=== PATIENT | male | born 1970 | race Caucasian/White ===

== ENCOUNTER 2019-08-17 06:10 | Outpatient (CLI) | payer MEDICAID | END 2019-08-17 06:11 | disposition critical access hospital (66) | LOC: EMS 06:10 | PROVIDERS: ATTEND Surgery | DX: R06.02 Shortness of breath (principal); R05 Cough | CPT/HCPCS: A0425; A0429; A0999 ==

== ENCOUNTER 2019-08-17 06:27 | Observation (INO) | payer MEDICAID ==
--- NOTE | 2019-08-17 07:24 | ED Physician Documentation ---
PD HPI DYSPNEA - Stated complaint Stated Complaint: DIFFICULTY BREATHING - Chief complaint Chief Complaint: Resp - History obtained from History obtained from: Patient - History of Present Illness Timing - onset: How many days ago (3) Timing - onset during: Rest Timing - duration: Days (3) Timing - details: Gradual onset, Still present Inciting event(s): URI Improved by: Rest, Sitting up Worsened by: Exertion, Laying flat, Coughing Associated symptoms: Fever, Cough, Chest pain / discomfort, Other (vomiting skin rash and dyspnea). No: Palpitations, Diaphoresis, Bilateral edema, Unilateral edema Similar symptoms before: Has not had sx before Recently seen: Not recently seen - Additional information Additional information: 49-year-old homeless male presents to the emergency department this morning with 3-day history of cough and increasing exertional dyspnea. He feels that he has a fever and he is body is covered in a rash that has had for about 3 weeks. He states he began to have this while he was in [place]. He has had some vomiting denies any diarrhea but does state that he is dizzy when standing. Review of Systems Constitutional: reports: Fever, Chills, Myalgias, Fatigue Eyes: denies: Decreased vision Ears: denies: Ear pain Nose: reports: Rhinorrhea / runny nose, Congestion Throat: reports: Sore throat Cardiac: reports: Chest pain / pressure. denies: Palpitations, Pedal edema, Calf pain Respiratory: reports: Dyspnea, Cough GI: reports: Nausea, Vomiting. denies: Abdominal Pain, Diarrhea : denies: Dysuria, Frequency Skin: reports: Rash Musculoskeletal: denies: Neck pain, Back pain, Extremity pain Neurologic: denies: Generalized weakness, Focal weakness, Numbness PD PAST MEDICAL HISTORY - Past Medical History Past Medical History: No Other Past Medical History: pt denies any medical hx - Past Surgical History Past Surgical History: No - Present Medications Home Medications: Ambulatory Orders Medication Instructions Recorded Confirmed No Known Home Medications 08/17/19 08/17/19 - Allergies Allergies/Adverse Reactions: Allergies Allergy/AdvReac Type Severity Reaction Status Date / Time No Known Drug Allergies Allergy Verified 08/17/19 07:37 - Social History Does the pt smoke?: Yes Smoking Status: Current every day smoker Does the pt drink ETOH?: Yes Does the pt have substance abuse?: No Substance Use and Type: Marijuana, Meth - Immunizations Immunizations are current?: No - POLST Patient has POLST: No PD ED PE NORMAL - Vitals Vital signs reviewed: Yes (tachy and tachypneic) - General General: Alert and oriented X 3, No acute distress, Well developed/nourished - HEENT HEENT: Atraumatic, PERRL, EOMI, Other (dry mucous membranes ) - Neck Neck: Supple, no meningeal sign, No bony TTP - Cardiac Cardiac: No murmur, Other (tachy to 110) - Respiratory Respiratory: No respiratory distress, Clear bilaterally - Abdomen Abdomen: Soft, Non tender - Back Back: No CVA TTP, No spinal TTP - Derm Derm: Normal color, Warm and dry, Other (There are multiple superficial skin eruptions over the entire body consistent with scabies. ) - Extremities Extremities: No deformity, No edema - Neuro Neuro: Alert and oriented X 3, correctional supervisor lieutenant 2-12 intact, No motor deficit, No sensory deficit, Normal speech Eye Opening: Spontaneous Motor: Obeys Commands Verbal: Oriented GCS Score: 15 - Psych Psych: Normal mood, Normal affect Results - Vitals Vitals: Vital Signs - 24 hr 08/17/19 08/17/19 08/17/19 06:30 07:50 10:22 Temperature 36.7 C 36.8 C 36.2 C L Heart Rate 111 H 89 64 Respiratory 24 20 15 Rate Blood Pressure 105/69 97/62 128/77 O2 Saturation 96 98 100 Oxygen O2 Source Room air - Labs Labs: Laboratory Tests 08/17/19 08/17/19 08/17/19 07:20 07:20 07:20 WBC 9.0 RBC 4.90 Hgb 15.9 Hct 45.3 MCV 92.4 MCH 32.4 H MCHC 35.1 RDW 12.2 Plt Count 133 MPV 9.9 Neut # (Auto) 8.1 H Lymph # (Auto) 0.6 L Bureau # (Auto) 0.3 Eos # (Auto) 0.0 Baso # (Auto) 0.0 Absolute Nucleated RBC 0.00 Nucleated RBC % 0.0 PT 21.2 H INR 1.9 H APTT 33.7 H Sodium 130 L Potassium 3.4 L Chloride 94 L Carbon Dioxide 23 Anion Gap 13.0 BUN 19 Creatinine 1.6 H Estimated GFR (MDRD) 46 L Glucose 125 H Lactic Acid Calcium 8.6 Total Bilirubin 2.3 H AST > 5200 H ALT 4622 H Alkaline Phosphatase 120 Total Creatine Kinase CK-MB (CK-2) Total Protein 6.3 L Albumin 3.2 Globulin 3.1 Albumin/Globulin Ratio 1.0 Lipase 40 Urine Color Urine Clarity Urine pH Ur Specific Mayer Urine Protein Urine Glucose (UA) Urine Ketones Urine Occult Blood Urine Nitrite Urine Bilirubin Urine Urobilinogen Ur Leukocyte Esterase Urine RBC Urine WBC Ur Squamous Epith Cells Urine Bacteria Urine Casts Ur Microscopic Review Urine Culture Comments Salicylates Urine Opiates Screen Ur Oxycodone Screen Urine Methadone Screen Ur Propoxyphene Screen Acetaminophen Ur Barbiturates Screen Ur Tricyclics Screen Ur Phencyclidine Scrn Ur Amphetamine Screen U Methamphetamines Scrn U Benzodiazepines Scrn Urine Cocaine Screen U Cannabinoids Screen Ethyl Alcohol Group A Strep Rapid 08/17/19 08/17/19 08/17/19 07:20 07:20 07:20 WBC RBC Hgb Hct MCV MCH MCHC RDW Plt Count MPV Neut # (Auto) Lymph # (Auto) Bureau # (Auto) Eos # (Auto) Baso # (Auto) Absolute Nucleated RBC Nucleated RBC % PT INR APTT Sodium Potassium Chloride Carbon Dioxide Anion Gap BUN Creatinine Estimated GFR (MDRD) Glucose Lactic Acid 1.5 Calcium Total Bilirubin AST ALT Alkaline Phosphatase Total Creatine Kinase 331 H CK-MB (CK-2) Total Protein Albumin Globulin Albumin/Globulin Ratio Lipase Urine Color Urine Clarity Urine pH Ur Specific Mayer Urine Protein Urine Glucose (UA) Urine Ketones Urine Occult Blood Urine Nitrite Urine Bilirubin Urine Urobilinogen Ur Leukocyte Esterase Urine RBC Urine WBC Ur Squamous Epith Cells Urine Bacteria Urine Casts Ur Microscopic Review Urine Culture Comments Salicylates Urine Opiates Screen Ur Oxycodone Screen Urine Methadone Screen Ur Propoxyphene Screen Acetaminophen Ur Barbiturates Screen Ur Tricyclics Screen Ur Phencyclidine Scrn Ur Amphetamine Screen U Methamphetamines Scrn U Benzodiazepines Scrn Urine Cocaine Screen U Cannabinoids Screen Ethyl Alcohol < 5.0 Group A Strep Rapid 08/17/19 08/17/19 08/17/19 07:20 07:30 08:00 WBC RBC Hgb Hct MCV MCH MCHC RDW Plt Count MPV Neut # (Auto) Lymph # (Auto) Bureau # (Auto) Eos # (Auto) Baso # (Auto) Absolute Nucleated RBC Nucleated RBC % PT INR APTT Sodium Potassium Chloride Carbon Dioxide Anion Gap BUN Creatinine Estimated GFR (MDRD) Glucose Lactic Acid Calcium Total Bilirubin AST ALT Alkaline Phosphatase Total Creatine Kinase CK-MB (CK-2) 3.9 Total Protein Albumin Globulin Albumin/Globulin Ratio Lipase Urine Color Urine Clarity Urine pH Ur Specific Mayer Urine Protein Urine Glucose (UA) Urine Ketones Urine Occult Blood Urine Nitrite Urine Bilirubin Urine Urobilinogen Ur Leukocyte Esterase Urine RBC Urine WBC Ur Squamous Epith Cells Urine Bacteria Urine Casts Ur Microscopic Review Urine Culture Comments Salicylates < 6.0 Urine Opiates Screen Ur Oxycodone Screen Urine Methadone Screen Ur Propoxyphene Screen Acetaminophen 13 Ur Barbiturates Screen Ur Tricyclics Screen Ur Phencyclidine Scrn Ur Amphetamine Screen U Methamphetamines Scrn U Benzodiazepines Scrn Urine Cocaine Screen U Cannabinoids Screen Ethyl Alcohol Group A Strep Rapid POSITIVE H 08/17/19 09:00 WBC RBC Hgb Hct MCV MCH MCHC RDW Plt Count MPV Neut # (Auto) Lymph # (Auto) Bureau # (Auto) Eos # (Auto) Baso # (Auto) Absolute Nucleated RBC Nucleated RBC % PT INR APTT Sodium Potassium Chloride Carbon Dioxide Anion Gap BUN Creatinine Estimated GFR (MDRD) Glucose Lactic Acid Calcium Total Bilirubin AST ALT Alkaline Phosphatase Total Creatine Kinase CK-MB (CK-2) Total Protein Albumin Globulin Albumin/Globulin Ratio Lipase Urine Color DARK YELLOW Urine Clarity CLEAR Urine pH 6.0 Ur Specific Mayer 1.020 Urine Protein 100 H Urine Glucose (UA) NEGATIVE Urine Ketones 15 H Urine Occult Blood SMALL H Urine Nitrite NEGATIVE Urine Bilirubin NEGATIVE Urine Urobilinogen 4 H Ur Leukocyte Esterase NEGATIVE Urine RBC 0-5 Urine WBC 0-3 Ur Squamous Epith Cells RARE Squamous Urine Bacteria Few Urine Casts 3-5 Granular Casts Ur Microscopic Review INDICATED Urine Culture Comments NOT INDICATED Salicylates Urine Opiates Screen NEGATIVE Ur Oxycodone Screen NEGATIVE Urine Methadone Screen NEGATIVE Ur Propoxyphene Screen NEGATIVE Acetaminophen Ur Barbiturates Screen NEGATIVE Ur Tricyclics Screen NEGATIVE Ur Phencyclidine Scrn NEGATIVE Ur Amphetamine Screen POSITIVE H U Methamphetamines Scrn POSITIVE H U Benzodiazepines Scrn NEGATIVE Urine Cocaine Screen NEGATIVE U Cannabinoids Screen NEGATIVE Ethyl Alcohol Group A Strep Rapid - Rads (name of study) chest 2 view Radiology: Prelim report reviewed (Impression: Interstitial prominence, bronchitis or interstitial pneumonitis versus reactive airway disease.), EMP read indepedently, See rad report Procedures - IVC sono (time) 0718 Bedside IVC sono: IVC measures (cm) (1.02), Dehydration (est 1-2 liter deficit) PD MEDICAL DECISION MAKING - ED course Complexity details: reviewed results, re-evaluated patient, considered differential, d/w patient ED course: 49 y/o male with a 3 day history of increasing dyspnea with cough has had vomiting and is dehydrated on interrogation of the IVC. He is covered in a rash consistent with scabies. An IV is begun with saline. His rapid strep is positive and he is administered penicillin IM. His AST is markedly elevated and on further history the patient has taken handfuls of Tylenol he indicates he is not taking any in the past 2 days. His acetaminophen level is 13 today and his transaminases are elevated enough to indicate significant toxicity. Poison control was contacted and the case recommends a full dose of Acetadote and he is given 150 mg/kg loading dose in the emergency department and arrangements were made for admission. Departure - Departure Disposition: ED Place in Observation Clinical Impression: Strep pharyngitis Acetaminophen overdose of undetermined intent Qualifiers: Encounter type: initial encounter Qualified Code(s): T39.1X4A - Poisoning by 4- Aminophenol derivatives, undetermined, initial encounter Condition: Serious
[2019-08-17] MEDS ORDERED: SODIUM CHLORIDE 0.9% 1,000 ML IV ONE (07:29)
[2019-08-17 07:33] LABS: BASOPHILS % (AUTO) 0.4 %; EOSINOPHILS % (AUTO) 0.1 %; HGB - HEMOGLOBIN 15.9 g/dL (14.0-18.0); LYMPHOCYTES # (AUTO) 0.6 10^3/uL (1.5-3.5); LYMPHOCYTES % (AUTO) 6.1 %; MEAN CORPUSCULAR HEMOGLOBIN 32.4 pg (27.0-31.0); MEAN CORPUSCULAR HGB CONC 35.1 g/dL (32.0-36.0); MEAN CORPUSCULAR VOLUME 92.4 fL (80.0-94.0); MEAN PLATELET VOLUME 9.9 fL (7.4-11.4); MONOCYTES # (AUTO) 0.3 10^3/uL (0.0-1.0); MONOCYTES % (AUTO) 3.5 %; NEUTROPHILS # (AUTO) 8.1 10^3/uL (1.5-6.6); NEUTROPHILS % (AUTO) 89.6 %; PLT - PLATELET COUNT 133 10^3/uL (130-450); RED CELL DISTRIBUTION WIDTH 12.2 % (12.0-15.0)
[2019-08-17 07:37] LABS: INR 1.9 (0.8-1.2); PT - PROTHROMBIN TIME 21.2 secs (9.9-12.6)
[2019-08-17 07:45] LABS: PARTIAL THROMBOPLASTIN TIME 33.7 secs (24.9-33.3)
[2019-08-17 07:56] LABS: ALBUMIN 3.2 g/dL (3.2-5.5); ALKALINE PHOSPHATASE 120 IU/L (42-121); AST ASPARTATE AMINOTRANSFERASE > 5200 IU/L (10-42); BILIRUBIN,TOTAL 2.3 mg/dL (0.2-1.0); BUN - BLOOD UREA NITROGEN 19 mg/dL (6-20); CALCIUM 8.6 mg/dL (8.5-10.3); CARBON DIOXIDE - CO2 23 mmol/L (21-32); CHLORIDE 94 mmol/L (101-111); CREATININE 1.6 mg/dL (0.6-1.2); GFR - MDRD 46 (>89); GLUCOSE 125 mg/dL (70-100); LIPASE 40 U/L (22-51); SODIUM 130 mmol/L (135-145); TOTAL PROTEIN 6.3 g/dL (6.7-8.2)
--- NOTE | 2019-08-17 08:02 | XRAY Report ---
Reason: soa cough Procedure Date: 08/17/2019 Accession Number: [id number] / [id number] Procedure: XR - Chest 2 View X-Ray CPT Code: 88248 FULL RESULT: EXAM: CHEST RADIOGRAPHY EXAM DATE: 08/17/2019 07:50 AM. CLINICAL HISTORY: Short of breath, pain. COMPARISON: None. TECHNIQUE: 2 views. FINDINGS: Lungs/Pleura: Mild interstitial prominence with peribronchial cuffing. No localized infiltrate, consolidation, effusion, or pneumothorax. Mediastinum: Heart and mediastinal contours are unremarkable. Upper lobe vessels not distended. Other: None. IMPRESSION: Interstitial prominence, bronchitis or interstitial pneumonitis versus reactive airways disease. RADIA
[2019-08-17 08:18] LABS: ALT ALANINE AMINOTRANSFERASE 4622 IU/L (10-60)
[2019-08-17] MEDS ORDERED: PENICILLIN G BENZATHINE 600,000 UNIT/ML SYRINGE IM STA (08:55)
[2019-08-17 09:15] LABS: ACETAMINOPHEN 13 ug/mL (10-30); SALICYLATE < 6.0 mg/dL
[2019-08-17 09:21] LABS: MUDS CUTOFF CONCENTRATIONS CUTOFF CONC BELOW:
[2019-08-17 09:26] LABS: GLUCOSE, URINE (UA) NEGATIVE (NEGATIVE); KETONES,URINE (UA) 15 mg/dL (NEGATIVE); LEUKOCYTE ESTERASE, URINE NEGATIVE (NEGATIVE); NITRITE,URINE NEGATIVE (NEGATIVE); OCCULT BLOOD,URINE SMALL (NEGATIVE); PROTEIN,URINE 100 mg/dL (NEGATIVE); UROBILINOGEN,URINE 4 E.U./dL (NORMAL)
[2019-08-17 09:32] LABS: CLARITY,URINE CLEAR (CLEAR)
[2019-08-17 09:33] LABS: BILIRUBIN,URINE NEGATIVE (NEGATIVE); ICTOTEST,URINE NEGATIVE
[2019-08-17 09:36] LABS: AMPHETAMINE SCREEN,URINE POSITIVE (NEGATIVE); BENZODIAZEPINES SCREEN, URINE NEGATIVE (NEGATIVE); COCAINE SCREEN URINE NEGATIVE (NEGATIVE); METHADONE SCREEN, URINE NEGATIVE (NEGATIVE); METHAMPHETAMINES SCREEN, URINE POSITIVE (NEGATIVE); OPIATE SCREEN, URINE NEGATIVE (NEGATIVE); OXYCODONE SCREEN, URINE NEGATIVE (NEGATIVE); PROPOXYPHENE SCREEN, URINE NEGATIVE (NEGATIVE); TRICYCLIC ANTIDEPRESSANT,URINE NEGATIVE (NEGATIVE)
[2019-08-17 09:40] LABS: BACTERIA,URINE Few /HPF (None Seen); RBC,URINE 0-5 /HPF (0-5); SQUAMOUS EPITHELIAL CELL,UR RARE Squamous (<= Few)
[2019-08-17 09:41] LABS: CASTS, URINE 3-5 Granular Casts /LPF
[2019-08-17] MEDS ORDERED: DEXTROSE 5% IV STA (09:47)
[2019-08-17] MEDS ORDERED: ACETYLCYSTEINE IV STA (09:47)
[2019-08-17] MEDS ORDERED: ONDANSETRON 4 MG/2 ML VIAL IVP PRN (09:54)
[2019-08-17] MEDS ORDERED: ONDANSETRON ODT 4 MG TABLET TL PRN (09:54)
[2019-08-17] MEDS ORDERED: ACETYLCYSTEINE IV ONE ×2 (11:15→15:30)
[2019-08-17] MEDS ORDERED: DEXTROSE 5% IV ONE ×2 (11:15→15:30)
[2019-08-17] MEDS: SODIUM CHLORIDE FLUSH 0.9% 10 ML SYRINGE IVP SCH ×2 (12:04→23:56)
[2019-08-17] MEDS: SODIUM CHLORIDE FLUSH 0.9% 10 ML SYRINGE IVP PRN ×3 (12:04→23:56)
[2019-08-17] MEDS: PENICILLIN VK 250 MG TABLET PO SCH ×2 (14:07→21:26)
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
[2019-08-17] MEDS ORDERED: MORPHINE 2 MG/ML CARPUJECT IVP PRN (20:22)
--- NOTE | 2019-08-17 22:31 | Ultrasound Report ---
Reason: elevated lft Procedure Date: 08/17/2019 Accession Number: [id number] / [id number] Procedure: US - Abdomen Limited CPT Code: FULL RESULT: EXAM: ABDOMEN ULTRASOUND LIMITED, RUQ EXAM DATE: 08/17/2019 07:45 PM. CLINICAL HISTORY: Abdominal pain COMPARISON: None. TECHNIQUE: Real-time scanning was performed with static images obtained. FINDINGS: Liver: Submitted images of liver demonstrate no focal lesions. Main portal vein flow: Hepatopetal. Gallbladder: No shadowing stones are seen. No diffuse gallbladder wall thickening. There is mild focal thickening of the perihepatic gallbladder wall. This is nonspecific. Negative sonographic Joe sign. Biliary System: CBD measures 4 mm. No intrahepatic or extrahepatic ductal dilatation. Other: The visualized pancreas and right kidney are unremarkable. IMPRESSION: Negative right upper quadrant ultrasound. RADIA
[2019-08-18 05:52] LABS: ALBUMIN 2.9 g/dL (3.2-5.5); BILIRUBIN,TOTAL 2.3 mg/dL (0.2-1.0); CALCIUM 8.5 mg/dL (8.5-10.3); CREATININE 1.2 mg/dL (0.6-1.2); TOTAL PROTEIN 5.8 g/dL (6.7-8.2)
[2019-08-18] MEDS: PENICILLIN VK 250 MG TABLET PO SCH (06:26)
[2019-08-18] MEDS ORDERED: POTASSIUM CHLORIDE 20 MEQ TABLET PO ONE (06:40)
[2019-08-18] MEDS: POTASSIUM CHLOR 10 MEQ/100 ML 10 MEQ/100 ML BAG IV SCH ×3 (07:49→10:04)
[2019-08-18] MEDS: SODIUM CHLORIDE FLUSH 0.9% 10 ML SYRINGE IVP SCH (07:50)
--- NOTE | 2019-08-18 08:06 | Discharge Plan ---
Discharge Plan Problem Reviewed?: Yes Disposition: Home, Self Care Condition: Good Prescriptions: Penicillin Vk 500 mg PO TID #42 tablet Potassium Chloride 40 meq PO DAILY #6 packet Diet: Regular Activity Restrictions: Activity as Tolerated Shower Restrictions: No Driving Restrictions: No Instruction Topics: Penicillin V tablets Plan of Treatment: you were placed in observation after presenting with body pain, fevers and sore throat. You have Strep infection. However, in treating your sore throat, you were taking a lot of tylenol. In the emergency room we found your liver enzymes to be very high at 5000. Normal is up to 45. Since we do not know if your liver was damaged by tylenol, or the metamphetamines your take, or if you have Hepatitis B or C, we observed you overnight. Care Goals: you received treatment for tylenol poisoning and your tylenol level is now undetectable in your blood. We did an ultrasound on your liver and there is damage of either hepatitis, cirrhosis or fatty liver. Your blood tests for Hepatitis B or C are pending. You have a low potassium and need to take a potassium pill daily for the next 3 days. Please establish yourself with a primary care provider when you get to where you usually live, since you are visiting the [place]. Ask them to get records from here because if you do have infectious Hepatitis you need to know SALAS. Finish the penicilling antibiotics for the strep infection Please stop drinking any alcohol at all and stop any substance abuse such as you metamphetamine use. You are in the midst of high risk behavior that could lead to a premature . Assessment: patient states he understands these goals and will try to follow thru. No Smoking: If you smoke, Please STOP! Call for help.
[2019-08-18 08:27] VITALS: BP 129/72
[2019-08-18] MEDS ORDERED: POLYETHYLENE GLYCOL 3350 17 GM PACKET PO SCH (09:00)
[2019-08-18 13:48] LABS: HEPATITIS A IGM NON-REACTIVE (NON-REACTIVE); HEPATITIS B SURFACE ANTIGEN NON-REACTIVE (NON-REACTIVE); HEPATITIS C ANTIBODY NON-REACTIVE (NON-REACTIVE)
--- NOTE | 2019-08-18 14:34 | DISCHARGE SUMMARY ---
Discharge Summary Admit Date: 08/17/19 Discharge Date: 08/18/19 Discharging Provider: Humera Kim MD Code Status: Attempt Resuscitation Condition at Discharge: Good Discharge Disposition: 01 Home, Self Care - DIAGNOSES Discharge Diagnoses with Status of Each Condition: 1. Elevated liver enzymes 2. Tylenol toxicity 3. Methamphetamine abuse 4. Group A strep infection 5. Skin excoriation 6. Hypokalemia - HPI History of Present Illness: 49-year-old homeless white male who has been "homeless for only 5 months" the presented to [place] emergency room [place] 3 [place]. He is usual hangout space is in [place] or [place]. He presents with fevers chills myalgias and "hurting all over". He developed a severe sore throat and he has been taking "handfuls of Tylenol for it". His chest felt like it was "on fire". Worse with laying down, better with sitting up. Cough makes him short of breath. Has had a "rash" for 3 weeks. In the emergency room he was evaluated by emergency room physician where his temperature was 36.7 pulse was 111 blood pressure 105/69, respirations 24 and he was 96% on room air. He is extremely disheveled stocky white male with poor dentition and his body covered in scabs. Injection sites in between his toes. Back of throat some evidence of pharyngitis. Clear lungs. A sodium of 130, potassium 3.4, creatinine 1.6, lactic acid normal. Total bili 2.3, AST 5200, ALT 4622. CK 331. Group a strep positive. White cell count 9000, hemoglobin 15.9. - CONSULTS | PROCEDURES Procedures: 1. Chest x-ray showing interstitial prominence, bronchitis, interstitial pneumonitis versus reactive airways disease. 2. Abdominal ultrasound showing negative right upper quadrant ultrasound. Mild heterogeneous changes. 3. Hepatitis serology negative for hepatitis A, B, C - HOSPITAL COURSE Hospital Course: Emergency room physician was concerned about Tylenol toxicity since that was a Tylenol level found on board of 13. As such he was treated with acetylcysteine. Brought in for observation status to continue to treat the Tylenol level. His urine tox screen was also positive for methamphetamines and amphetamines. Ethyl alcohol less than 5. Salicylate is less than 6. After treatment with acetylcysteine his Tylenol level went to 10 and then less than 10, undetectable. Thinking that this gentleman has a high risk lifestyle, his transaminitis may be from hepatitis. Ultrasound was done and shows diffuse heterogeneous changes compatible with cirrhosis or fatty liver. His hepatitis serology is negative for A, B, C. At discharge his sodium improved 137. Potassium was still 2.9 and will need further potassium therapy. Creatinine is now normal at 1.2. Total bili stated 2.3. AST came down to 4334, ALT 3452. Patient is discharged in stable condition. We initially prescribed penicillin and sent it to [facility] pharmacy in [place]. He asked that we resend it to a different pharmacy. I have given him a handwritten pharmacy prescription to take it to whichever pharmacy he wants. Exam is 37.2, pulse is 112, blood pressure 143/97, respirations 20, 97% on room air. He is 5 foot 8 inches tall and weighs 104.3 kg. We have given him a bath and overall his body odor is much improved. Skin texture is much improved. He has multiple, multiple scabs healing all over his body in various stages of healing. Neck is supple. The back of the throat is less red with no exudate. Lungs are clear to auscultation and percussion. PMI is normally placed. Abdomen is soft, nontender, normal bowel sounds. Extremities are without clubbing cyanosis or edema. He is ambulating in the room, eating 100% of his meals. He is asked to follow-up and that I would like him to make an appointment with a primary care provider. He needs to establish himself with one. I have asked him to please stop any recreational substance. That includes alcohol, cocaine, heroin, LSD, and methamphetamines. - ALLERGIES Allergies/Adverse Reactions: Allergies Allergy/AdvReac Type Severity Reaction Status Date / Time No Known Drug Allergies Allergy Verified 08/17/19 07:37 - MEDICATIONS Home Medications: Ambulatory Orders Medication Instructions Recorded Confirmed Penicillin Vk 500 mg PO TID #42 tablet 08/18/19 Potassium Chloride 40 meq PO DAILY #6 packet 08/18/19 - LABS Result Diagrams: 08/17/19 07:20 08/18/19 04:40
== END 2019-08-18 12:09 | disposition home or self-care (01) ==
LOC: EDBD → ED 06:27 → MS2 09:54
PROVIDERS: ADMIT Specialist; ATTEND Specialist
DX: R74.8 Abnormal levels of other serum enzymes (principal); T39.1X5A Adverse effect of 4-Aminophenol derivatives, initial encounter; F15.10 Other stimulant abuse, uncomplicated; J02.0 Streptococcal pharyngitis; T14.8XXA Other injury of unspecified body region, initial encounter; E87.6 Hypokalemia; Z59.0 Homelessness
CPT/HCPCS: 36415; 71046; 76705; 80053; 80074; 80306; 80307; 80320; 80329; 81001; 82550; 82553; 83605; 83690; 85025; 85610; 85730; 87040; 87430; 96361; 96365; 96366; 96367; 96368; 96372; 96375; 99285; A9270; G0378; J0132; J3490; Q0162; 81003; 87086